=== PATIENT | male | born 1950 | race Caucasian/White ===

== ENCOUNTER 2018-05-09 02:24 | Observation (INO) | payer MEDICARE, OTHER ==
[2018-05-09] MEDS ORDERED: Sodium Chloride 0.9% 2.5 ML Syringe FLUSH PRN (02:46)
[2018-05-09] MEDS ORDERED: Sodium Chloride 0.9% 10 ML Syringe FLUSH PRN (02:46)
[2018-05-09 03:38] LABS: CHLORIDE,CL 99 mmol/L (98-107); SODIUM,NA 136 mmol/L (136-148)
--- NOTE | 2018-05-09 06:17 | EDM.PDOC ---
ED HPI GENERAL MEDICAL PROBLEM - General Chief Complaint: Lower Extremity Injury/Pain Stated Complaint: TO BE SEEN PER DR. 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 Review of systems: As per history of present illness and below otherwise all systems reviewed and negative. Past medical history: As per history of present illness and as reviewed below otherwise noncontributory. Surgical history: As per history of present illness and as reviewed below otherwise noncontributory. Social history: No reported history of drug or alcohol abuse. Family history: As per history of present illness and as reviewed below otherwise noncontributory. Physical exam: HEENT: Atraumatic, normocephalic, pupils reactive, negative for conjunctival pallor or scleral icterus, mucous membranes moist, throat clear, neck supple, nontender, trachea midline. Lungs: Clear to auscultation, breath sounds equal bilaterally, chest nontender. Heart: S1S2, regular, negative for clicks, rubs, or JVD. Abdomen: Soft, nondistended, nontender. Negative for masses or hepatosplenomegaly. Negative for costovertebral tenderness. Pelvis: Stable nontender. Genitourinary: Deferred. Rectal: Deferred. Extremities: patient has a plantar ulcer approximately 3 cm in diameter to his right foot. Neurovascular exam is unremarkable Neuro: Awake, alert, oriented. Cranial nerves II through XII unremarkable. Cerebellum unremarkable. Motor and sensory unremarkable throughout. Exam nonfocal. Diagnostics: CBC CMP blood culture 2 x-ray right foot PT/INR Therapeutics: Vancomycin 1 g IV Impression: #1 diabetic foot #2 rule out osteomyelitis Definitive disposition and diagnosis as appropriate pending reevaluation and review of above. denies pain Pain Score (Numeric/FACES): 0 - Related Data Allergies Allergy/AdvReac Type Severity Reaction Status Date / Time No Known Allergies Allergy Verified 05/09/18 02:39 Home Meds: Home Meds Allopurinol [Zyloprim] 300 mg PO DAILY 11/28/15 [History] Aspirin [Adult Low Dose Aspirin EC] 81 mg PO DAILY 11/28/15 [History] Fish Oil/[place]-3 Fatty Acids [Fish Oil 1,000 MG] 1 gm PO DAILY 11/28/15 [History ] Levothyroxine Sodium 88 mcg PO DAILY 11/28/15 [History] Liraglutide [Victoza] 1.8 mg SQ DAILY 11/28/15 [History] Ubidecarenone [Co Q-10] 100 mg PO DAILY 11/28/15 [History] glipiZIDE [Glipizide ER] 10 mg PO WITHBREAKFAST 11/28/15 [History] metFORMIN HCl [Metformin HCl] 1,000 mg PO BID 11/28/15 [History] Losartan/Hydrochlorothiazide [Losartan-HCTZ 100-12.5 MG] 1 each PO DAILY [History] Past Medical History HEENT History: Reports: Impaired Vision Cardiovascular History: Reports: High Cholesterol, Hypertension Respiratory History: Reports: Sleep Apnea Other Respiratory History: CPAP to sleep Gastrointestinal History: Reports: None Genitourinary History: Reports: None Musculoskeletal History: Reports: Arthritis, Fracture, Gout Neurological History: Reports: Neuropathy, Diabetic Psychiatric History: Reports: None Endocrine/Metabolic History: Reports: Diabetes, Type II, Hypothyroidism Hematologic History: Reports: None Immunologic History: Reports: None Oncologic (Cancer) History: Reports: None Dermatologic History: Reports: None - Infectious Disease History Infectious Disease History: Reports: None - Past Surgical History GI Surgical History: Reports: Hernia Repair/Other Musculoskeletal Surgical History: Reports: Amputation Social & Family History - Family History Family Medical History: Noncontributory HEENT: Reports: Cataract, Impaired Vision Cardiac: Reports: High Cholesterol Musculoskeletal: Reports: Gout Neurological: Reports: TIA Endocrine/Metabolic: Reports: Diabetes, type II - Tobacco Use Smoking Status *Q: Never Smoker - Caffeine Use Caffeine Use: Reports: Coffee - Recreational Drug Use Recreational Drug Use: No - Living Situation & Occupation Occupation: Employed Review of Systems - Review of Systems Review Of Systems: ROS reveals no pertinent complaints other than HPI. ED EXAM, GENERAL - Physical Exam Exam: See Below (See dictation) Course - Vital Signs Last Recorded V/S: Last Vital Signs Temp 36.3 C 05/09/18 02:39 Pulse 92 05/09/18 02:39 Resp 18 05/09/18 02:39 BP 113/67 05/09/18 02:39 Pulse Ox 98 05/09/18 02:39 - Orders/Labs/Meds Orders: Active Orders 24 hr Category Date Time Status EKG Documentation Completion [RC] STAT Care 05/09/18 02:46 Active Foot Comp Min 3V Rt [CR] Stat Exams 05/09/18 02:46 Taken CULTURE BLOOD [BC] Stat Lab 05/09/18 03:00 Received CULTURE BLOOD [BC] Stat Lab 05/09/18 03:10 Received Sodium Chloride 0.9% [Saline Flush] Med 05/09/18 02:46 Active 10 ml FLUSH ASDIRECTED PRN Sodium Chloride 0.9% [Saline Flush] Med 05/09/18 02:46 Active 2.5 ml FLUSH ASDIRECTED PRN Blood Culture x2 Reflex Set [OM.PC] Stat Oth 05/09/18 02:46 Ordered Peripheral IV Insertion Adult [OM.PC] Stat Oth 05/09/18 02:46 Ordered Medication Orders Sodium Chloride (Saline Flush) 10 ml FLUSH ASDIRECTED PRN PRN Reason: Keep Vein Open Sodium Chloride (Saline Flush) 2.5 ml FLUSH ASDIRECTED PRN PRN Reason: Keep Vein Open Labs: Laboratory Tests 05/09/18 05/09/18 Range/Units 03:00 03:00 WBC 10.66 (4.0-11.0) K/uL RBC 3.93 L (4.50-5.90) M/uL Hgb 11.4 L (13.0-17.0) g/dL Hct 34.2 L (38.0-50.0) % MCV 87.0 (80.0-98.0) fL MCH 29.0 (27.0-32.0) pg MCHC 33.3 (31.0-37.0) g/dL RDW Std Deviation 45.2 (28.0-62.0) fl RDW Coeff of Katelyn 14 (11.0-15.0) % Plt Count 278 (150-400) K/uL MPV 10.10 (7.40-12.00) fL Neut % (Auto) 74.5 (48.0-80.0) % Lymph % (Auto) 11.5 L (16.0-40.0) % [place] % (Auto) 11.0 (0.0-15.0) % Eos % (Auto) 2.9 (0.0-7.0) % Baso % (Auto) 0.1 (0.0-1.5) % Neut # (Auto) 7.9 H (1.4-5.7) K/uL Lymph # (Auto) 1.2 (0.6-2.4) K/uL [place] # (Auto) 1.2 H (0.0-0.8) K/uL Eos # (Auto) 0.3 (0.0-0.7) K/uL Baso # (Auto) 0.0 (0.0-0.1) K/uL Nucleated RBC % 0.0 /100WBC Nucleated RBCs # 0 K/uL Sodium 136 (136-148) mmol/L Potassium 3.4 L (3.5-5.1) mmol/L Chloride 99 (98-107) mmol/L Carbon Dioxide 24.4 (21.0-32.0) mmol/L BUN 19 H (7.0-18.0) mg/dL Creatinine 1.2 (0.8-1.3) mg/dL Est Cr Clr Drug Dosing 66.46 mL/min Estimated GFR (MDRD) > 60.0 ml/min Glucose 143 H (74-106) mg/dL Calcium 9.2 (8.5-10.1) mg/dL Total Bilirubin 0.7 (0.2-1.0) mg/dL AST 22 (15-37) IU/L ALT 15 (14-63) IU/L Alkaline Phosphatase 54 (46-116) U/L Total Protein 7.7 (6.4-8.2) g/dL Albumin 3.1 L (3.4-5.0) g/dL Globulin 4.6 H (2.0-3.5) g/dL Albumin/Globulin Ratio 0.7 L (1.3-2.8) Meds: Medications Generic Name Dose Route Start Last Admin Trade Name Freq PRN Reason Stop Dose Admin Sodium Chloride 10 ml 05/09/18 02:46 Saline Flush FLUSH ASDIRECTED PRN Keep Vein Open Sodium Chloride 2.5 ml 05/09/18 02:46 Saline Flush FLUSH ASDIRECTED PRN Keep Vein Open Departure - Departure Time of Disposition: 06:16 Disposition: Refer to Observation Condition: Good Clinical Impression: Diabetic foot - Discharge Information Referrals: PCP,None [Primary Care Provider] - - My Orders Last 24 Hours: My Active Orders 05/09/18 02:46 EKG Documentation Completion [RC] STAT Foot Comp Min 3V Rt [CR] Stat Sodium Chloride 0.9% [Saline Flush] 10 ml FLUSH ASDIRECTED PRN Sodium Chloride 0.9% [Saline Flush] 2.5 ml FLUSH ASDIRECTED PRN Blood Culture x2 Reflex Set [OM.PC] Stat Peripheral IV Insertion Adult [OM.PC] Stat 05/09/18 03:00 CULTURE BLOOD [BC] Stat 05/09/18 03:10 CULTURE BLOOD [BC] Stat - Assessment/Plan Last 24 Hours: My Active Orders 05/09/18 02:46 EKG Documentation Completion [RC] STAT Foot Comp Min 3V Rt [CR] Stat Sodium Chloride 0.9% [Saline Flush] 10 ml FLUSH ASDIRECTED PRN Sodium Chloride 0.9% [Saline Flush] 2.5 ml FLUSH ASDIRECTED PRN Blood Culture x2 Reflex Set [OM.PC] Stat Peripheral IV Insertion Adult [OM.PC] Stat 05/09/18 03:00 CULTURE BLOOD [BC] Stat 05/09/18 03:10 CULTURE BLOOD [BC] Stat
[2018-05-09] MEDS ORDERED: Sodium Chloride 0.9% 1,000 ML IV STA (06:22)
--- NOTE | 2018-05-09 10:24 | CR ---
EXAM DATE: 05/09/18 PATIENT'S AGE: 68 Patient: FILIBERTO BARR Facility: [place], [place] Site . Site : 1950 Study: XRay Extremity Right Foot [id number]/21/2018 3:29:23 AM Ordering Physician: Doctor Patterson Final Report: Indication: Foot ulcer three views right foot Technique: Comparison: None Findings: Surgical absence of the entire right toe. Oval lucency on the plantar aspect of the foot at the level of the distal metatarsals consistent with clinical history ulcer. There is increased sclerosis of the sesamoid bone of the 1st metatarsal. No definite bony erosion identified. No soft tissue gas. No fracture or subluxation. Impression: Plantar ulcer. Increased sclerosis of the sesamoid bone of the 1st metatarsal may reflect chronic change. MRI or nuclear medicine bone scan would be useful for further evaluation if there is high clinical suspicion for osteomyelitis. Dictated by Lidia Pantoja MD @ May 09 2018 4:02AM (Electronic Signature) Report Signed by Proxy. MERLE
[2018-05-09] MEDS ORDERED: Acetaminophen/HYDROcodone 325-5 MG Tab PO PRN (11:54)
[2018-05-09] MEDS ORDERED: Triamcinolone Acetonide 0.1% Crm 15 GM Tube TOP PRN (11:57)
[2018-05-09] MEDS: Piperacillin/Tazobactam 4.5 GM in Sodium Chloride 0.9% 100 ML IV SCH ×2 (13:05→20:44)
[2018-05-09] MEDS ORDERED: Vancomycin 2 GM in Sodium Chloride 0.9% 500 ML IV SCH (17:00)
[2018-05-09] MEDS: Insulin Aspart 100 Units/ML 3 ML Pen SUBCUT SCH ×2 (18:08→21:16)
--- NOTE | 2018-05-09 23:21 | PCM.CONS ---
H&P History of Present Illness - General Date of Service: 05/09/18 Admit Problem/Dx: Admission Diagnosis/Problem Admission Diagnosis/Problem Diabetic foot Diabetic ulcer right foot Source of Information: Patient History Limitations: Reports: No Limitations - History of Present Illness Onset of Symptoms: Reports: Gradual, Unknown/Unsure Location: Reports: Lower Extremity, Right Quality: Reports: Other (patient has severe peripheral neuropathy and does not feel pain from ulcer.) Associated Symptoms: Reports: No Other Symptoms denies pain Pain Score (Numeric/FACES): 0 (no pain due to peripheral neuropathy) - Related Data Allergies/Adverse Reactions: Allergies Allergy/AdvReac Type Severity Reaction Status Date / Time No Known Allergies Allergy Verified 05/09/18 02:39 Home Medications: Home Meds RX: Allopurinol [Zyloprim] 300 mg PO DAILY 11/28/15 [History] RX: Aspirin [Adult Low Dose Aspirin EC] 81 mg PO DAILY 11/28/15 [History] RX: Fish Oil/[place]-3 Fatty Acids [Fish Oil 1,000 MG] 1 gm PO DAILY 11/28/15 [ History] RX: Levothyroxine Sodium 88 mcg PO DAILY 11/28/15 [History] RX: Liraglutide [Victoza] 1.8 mg SQ DAILY 11/28/15 [History] RX: Ubidecarenone [Co Q-10] 100 mg PO DAILY 11/28/15 [History] RX: glipiZIDE [Glipizide ER] 10 mg PO WITHBREAKFAST 11/28/15 [History] RX: metFORMIN HCl [Metformin HCl] 1,000 mg PO BID 11/28/15 [History] Losartan/Hydrochlorothiazide [Losartan-HCTZ 100-12.5 MG] 1 each PO DAILY [History] Sulfamethoxazole/Trimethoprim [Sulfamethoxazole-Tmp Ds Tablet] 1 each PO DAILY 05/09/18 [History] Triamcinolone Acetonide [Triamcinolone Acetonide 0.1% Crm] 1 applic TOP ASDIRECTED PRN 05/09/18 [History] Past Medical History HEENT History: Reports: Impaired Vision Cardiovascular History: Reports: High Cholesterol, Hypertension Respiratory History: Reports: Sleep Apnea Other Respiratory History: CPAP to sleep Gastrointestinal History: Reports: None Genitourinary History: Reports: None Musculoskeletal History: Reports: Arthritis, Fracture, Gout Neurological History: Reports: Neuropathy, Diabetic Psychiatric History: Reports: None Endocrine/Metabolic History: Reports: Diabetes, Type II, Hypothyroidism Hematologic History: Reports: None Immunologic History: Reports: None Oncologic (Cancer) History: Reports: None Dermatologic History: Reports: None - Infectious Disease History Infectious Disease History: Reports: Chicken Pox, Measles - Past Surgical History GI Surgical History: Reports: Hernia Repair/Other Musculoskeletal Surgical History: Reports: Amputation Social & Family History - Family History Family Medical History: Noncontributory HEENT: Reports: Cataract, Impaired Vision Cardiac: Reports: High Cholesterol Musculoskeletal: Reports: Gout Neurological: Reports: TIA Endocrine/Metabolic: Reports: Diabetes, type II - Tobacco Use Smoking Status *Q: Never Smoker - Caffeine Use Caffeine Use: Reports: None - Recreational Drug Use Recreational Drug Use: No - Living Situation & Occupation Occupation: Employed H&P Review of Systems - Review of Systems: Review Of Systems: See Below General: Reports: No Symptoms HEENT: Reports: No Symptoms Pulmonary: Reports: No Symptoms Cardiovascular: Reports: No Symptoms Gastrointestinal: Reports: No Symptoms Genitourinary: Reports: No Symptoms Musculoskeletal: Reports: No Symptoms Neurological: Reports: No Symptoms Hematologic/Lymphatic: Reports: No Symptoms Immunologic: Reports: No Symptoms Exam - Exam Exam: See Below - Vital Signs Vital Signs: Last Vital Signs Temp 36.5 C 05/09/18 19:00 Pulse 60 05/09/18 19:00 Resp 18 05/09/18 19:00 BP 120/70 05/09/18 19:00 Pulse Ox 96 05/09/18 19:00 Weight: 129.047 kg - Exam Extremities: Other (1.4 cm plantar diabetic ulcer on right foot that probes to deep tissue and bone in at least one location) Peripheral Pulses: 2+: Posterior Tibial (L), Posterior Tibial (R), Dorsalis Pedis (L), Dorsalis Pedis (R) Skin: Warm Skin Alteration Location (Drawings Not To Scale): 1 - 1.4 cm ulcer to deep tissue and bone in at least one location Physical Exam Comments:: Diabetic ulcer, 1.4 cm diameter on plantar distal right foot just proximal to area of previous amputation. Small amount of purulent drainage when pressure is applied - reduced from yesterday prior to patient coming to hospital and starting IV antibiotics. No malodor today but yesterday malodor was signficant. Necrotic tissue is present in ulcerated area. - Patient Data Lab Results Last 24 hrs: Laboratory Results - last 24 hr 05/09/18 05/09/18 05/09/18 Range/Units 03:00 03:00 03:00 WBC 10.66 (4.0-11.0) K/uL RBC 3.93 L (4.50-5.90) M/uL Hgb 11.4 L (13.0-17.0) g/dL Hct 34.2 L (38.0-50.0) % MCV 87.0 (80.0-98.0) fL MCH 29.0 (27.0-32.0) pg MCHC 33.3 (31.0-37.0) g/dL RDW Std Deviation 45.2 (28.0-62.0) fl RDW Coeff of Katelyn 14 (11.0-15.0) % Plt Count 278 (150-400) K/uL MPV 10.10 (7.40-12.00) fL Neut % (Auto) 74.5 (48.0-80.0) % Lymph % (Auto) 11.5 L (16.0-40.0) % [place] % (Auto) 11.0 (0.0-15.0) % Eos % (Auto) 2.9 (0.0-7.0) % Baso % (Auto) 0.1 (0.0-1.5) % Neut # (Auto) 7.9 H (1.4-5.7) K/uL Lymph # (Auto) 1.2 (0.6-2.4) K/uL [place] # (Auto) 1.2 H (0.0-0.8) K/uL Eos # (Auto) 0.3 (0.0-0.7) K/uL Baso # (Auto) 0.0 (0.0-0.1) K/uL Nucleated RBC % 0.0 /100WBC Nucleated RBCs # 0 K/uL ESR (0-19) mm/hr INR 0.94 Sodium 136 (136-148) mmol/L Potassium 3.4 L (3.5-5.1) mmol/L Chloride 99 (98-107) mmol/L Carbon Dioxide 24.4 (21.0-32.0) mmol/L BUN 19 H (7.0-18.0) mg/dL Creatinine 1.2 (0.8-1.3) mg/dL Est Cr Clr Drug Dosing 66.46 mL/min Estimated GFR (MDRD) > 60.0 ml/min Glucose 143 H (74-106) mg/dL POC Glucose (60-110) mg/dL Calcium 9.2 (8.5-10.1) mg/dL Total Bilirubin 0.7 (0.2-1.0) mg/dL AST 22 (15-37) IU/L ALT 15 (14-63) IU/L Alkaline Phosphatase 54 (46-116) U/L C-Reactive Protein (0.00-0.90) mg/dL Total Protein 7.7 (6.4-8.2) g/dL Albumin 3.1 L (3.4-5.0) g/dL Globulin 4.6 H (2.0-3.5) g/dL Albumin/Globulin Ratio 0.7 L (1.3-2.8) 05/09/18 05/09/18 05/09/18 Range/Units 03:00 03:00 16:30 WBC (4.0-11.0) K/uL RBC (4.50-5.90) M/uL Hgb (13.0-17.0) g/dL Hct (38.0-50.0) % MCV (80.0-98.0) fL MCH (27.0-32.0) pg MCHC (31.0-37.0) g/dL RDW Std Deviation (28.0-62.0) fl RDW Coeff of Katelyn (11.0-15.0) % Plt Count (150-400) K/uL MPV (7.40-12.00) fL Neut % (Auto) (48.0-80.0) % Lymph % (Auto) (16.0-40.0) % [place] % (Auto) (0.0-15.0) % Eos % (Auto) (0.0-7.0) % Baso % (Auto) (0.0-1.5) % Neut # (Auto) (1.4-5.7) K/uL Lymph # (Auto) (0.6-2.4) K/uL [place] # (Auto) (0.0-0.8) K/uL Eos # (Auto) (0.0-0.7) K/uL Baso # (Auto) (0.0-0.1) K/uL Nucleated RBC % /100WBC Nucleated RBCs # K/uL ESR 74 H (0-19) mm/hr INR Sodium (136-148) mmol/L Potassium (3.5-5.1) mmol/L Chloride (98-107) mmol/L Carbon Dioxide (21.0-32.0) mmol/L BUN (7.0-18.0) mg/dL Creatinine (0.8-1.3) mg/dL Est Cr Clr Drug Dosing mL/min Estimated GFR (MDRD) ml/min Glucose (74-106) mg/dL POC Glucose 108 (60-110) mg/dL Calcium (8.5-10.1) mg/dL Total Bilirubin (0.2-1.0) mg/dL AST (15-37) IU/L ALT (14-63) IU/L Alkaline Phosphatase (46-116) U/L C-Reactive Protein 13.90 H (0.00-0.90) mg/dL Total Protein (6.4-8.2) g/dL Albumin (3.4-5.0) g/dL Globulin (2.0-3.5) g/dL Albumin/Globulin Ratio (1.3-2.8) 05/09/18 Range/Units 21:03 WBC (4.0-11.0) K/uL RBC (4.50-5.90) M/uL Hgb (13.0-17.0) g/dL Hct (38.0-50.0) % MCV (80.0-98.0) fL MCH (27.0-32.0) pg MCHC (31.0-37.0) g/dL RDW Std Deviation (28.0-62.0) fl RDW Coeff of Katelyn (11.0-15.0) % Plt Count (150-400) K/uL MPV (7.40-12.00) fL Neut % (Auto) (48.0-80.0) % Lymph % (Auto) (16.0-40.0) % [place] % (Auto) (0.0-15.0) % Eos % (Auto) (0.0-7.0) % Baso % (Auto) (0.0-1.5) % Neut # (Auto) (1.4-5.7) K/uL Lymph # (Auto) (0.6-2.4) K/uL [place] # (Auto) (0.0-0.8) K/uL Eos # (Auto) (0.0-0.7) K/uL Baso # (Auto) (0.0-0.1) K/uL Nucleated RBC % /100WBC Nucleated RBCs # K/uL ESR (0-19) mm/hr INR Sodium (136-148) mmol/L Potassium (3.5-5.1) mmol/L Chloride (98-107) mmol/L Carbon Dioxide (21.0-32.0) mmol/L BUN (7.0-18.0) mg/dL Creatinine (0.8-1.3) mg/dL Est Cr Clr Drug Dosing mL/min Estimated GFR (MDRD) ml/min Glucose (74-106) mg/dL POC Glucose 127 H (60-110) mg/dL Calcium (8.5-10.1) mg/dL Total Bilirubin (0.2-1.0) mg/dL AST (15-37) IU/L ALT (14-63) IU/L Alkaline Phosphatase (46-116) U/L C-Reactive Protein (0.00-0.90) mg/dL Total Protein (6.4-8.2) g/dL Albumin (3.4-5.0) g/dL Globulin (2.0-3.5) g/dL Albumin/Globulin Ratio (1.3-2.8) Result Diagrams: 05/09/18 03:00 05/09/18 03:00 Consult PN Assessment/Plan Procedures: Procedures ASSAY OF BLOOD/URIC ACID (11/27/15) BLOOD CULTURE FOR BACTERIA (12/15/15) BONE IMAGING 3 PHASE (01/02/16) C-REACTIVE PROTEIN (12/15/15) CHEST X-RAY 2VW FRONTAL&LATL (12/15/15) COMPLETE CBC W/AUTO DIFF WBC (12/15/15) COMPREHEN METABOLIC PANEL (12/15/15) EMERGENCY DEPT VISIT (12/15/15) EVALUATE PT USE OF INHALER (12/15/15) GLYCOSYLATED HEMOGLOBIN TEST (11/27/15) HYDRATE IV INFUSION ADD-ON (12/15/15) HYDRATION IV INFUSION INIT (12/15/15) INFLUENZA ASSAY W/OPTIC (12/15/15) IRRIG DRUG DELIVERY DEVICE (01/25/16) NEG PRESS WOUND TX </=50 CM (02/06/16) PT EVALUATION (12/15/15) RBC SED RATE AUTOMATED (11/27/15) ROUTINE VENIPUNCTURE (12/15/15) THER/PROPH/DIAG INJ IV PUSH (01/25/16) URINALYSIS AUTO W/SCOPE (12/15/15) URINE CULTURE/COLONY COUNT (12/15/15) (1) Diabetic foot ulcer associated with type 2 diabetes mellitus SNOMED Code(s): 209352334 Code(s): E11.621 - TYPE 2 DIABETES MELLITUS WITH FOOT ULCER; L97.509 - NON- PRESSURE CHRONIC ULCER OTH PRT UNSP FOOT W UNSP SEVERITY Current Visit: No Qualifiers: Laterality: right Qualified Code(s): E11.621 - Type 2 diabetes mellitus with foot ulcer Assessment:: Ulcer probes as deep as bone. Problem List Initiated/Reviewed/Updated: Yes My Orders Last 24 Hours: My Active Orders 05/09/18 20:22 CULTURE ANAEROBIC [RM] Routine CULTURE WOUND [RM] Routine Plan: 1. Patient examined at bedside. 2. I determined that bedside incision and drainage was possible and possibly sufficient given the improvement of the ulcerated area since admission and starting IV Zosyn and Vancomycin. 3. Discussion held with patient. Patient gives written consent for Incision and Drainage Right Foot. 4. Incision and drainge performed on right foot diabetic ulcer. Necrotic tissue removed. Ulcer flushed with copious amounts of normal sterile saline with betadine, dried and swab cultures taken. Ulcer then packed with iodoform packing, covered with betadine soaked xeroform gauze, fluff gauze, kerlix roll and secured with tanisha dressing. 5. Patient is OK to discharge on Tuesday from Podiatry standpoint. Arrangements are being made for patient to be cared for by his daughter who is a nurse and will manage his wound vac which I will order to be sent directly to his home. Dressing change should be performed prior to discharge, consisting of flushing with copious amounts of normal sterile saline with betadine, dried and pack with iodoform packing, cover with betadine soaked xeroform gauze, fluff gauze, kerlix roll and secured with tanisha dressing.
[2018-05-10] MEDS: Piperacillin/Tazobactam 4.5 GM in Sodium Chloride 0.9% 100 ML IV SCH ×3 (00:40→11:29)
--- NOTE | 2018-05-10 01:41 | OR ---
SURGEON: Derrick Smith DPM DATE OF PROCEDURE: 05/09/2018 ANESTHESIA: None. PATHOLOGY: None. HEMOSTASIS: None. DIAGNOSIS: Diabetic ulcer, right foot. OPERATIVE PROCEDURE: Incision and drainage of diabetic ulcer, right foot. JUSTIFICATION FOR THE PROCEDURE: The patient is well known to me, having had a major infection of the right foot two years ago that resulted in partial loss of his 2nd ray including the 2nd toe on the right foot. The patient presented last evening in my office with a very foul smelling diabetic ulcer, I took a swab culture in the office and the swab went approximately 3 cm deep straight into his foot from plantar to dorsal. The patient clearly has necrotic tissue and also exhibited purulence that requires incision and drainage. Due to the factors including the fact that I will not be able to follow this patient over the next several days and improvement of the patient's right foot in the last 24 hours or so due to being nonweightbearing and receiving continuous IV antibiotic therapy, the level of improvement is sufficient that a bedside incision and drainage is possible. Additionally, the patient has severe peripheral neuropathy, which further enables to proceed without concern for causing pain to the patient. In fact, not even local anesthesia is necessary due to the severity of this patient's peripheral neuropathy on his feet. PROCEDURE IN DETAIL: The area was prepped in the usual aseptic manner with a chlorhexidine prep and incision was made with a #15 blade, incising necrotic tissue in the ulcer to visualize deeper into the ulcer and remove what was a reduced amount of purulent drainage compared with his presentation yesterday. Curved hemostat was utilized to probe. There was tunneling in multiple directions, approximately 3 to 4 cm of tunneling noted. Additional small amount of purulence was drained after exploring with the curved hemostat. After exsanguination and easily removed purulence and necrotic tissue with a pickup and blade, the area was flushed with approximately 500 mL of normal sterile saline that was mixed with Betadine to provide a diluted tea-colored mixture of saline with Betadine. This was infused with a large syringe repeatedly until all of the saline had been utilized. Area was dabbed dry with gauze, and to determine what may be left as far as any infection, swab cultures were taken. The area was then packed with iodoform gauze, half-inch, followed by overlying around the ulcer a Betadine-soaked Xeroform gauze, followed by fluff gauze, Kerlix roll, and the right foot dressing secured with an Ga bandage. The patient tolerated the procedure well. Confirmed that he had no pain at any point during the procedure. He will continue to receive IV antibiotics until his likely discharge tomorrow. While performing the procedure, I also discussed on speaker phone with his daughter who is a nurse, that if she is able to handle the duties of maintaining a wound VAC, which she is extremely familiar with due to her job, which entails placing wound VACs very often, that the patient could be managed by her with a VAC, which I will request from [facility] wound VAC. The wound VAC and materials will be shipped directly to the patient's stated address in [place], [place]. NAEEM GARZA /[id number]
[2018-05-10] MEDS: Insulin Aspart 100 Units/ML 3 ML Pen SUBCUT SCH ×2 (06:32→11:29)
[2018-05-10] MEDS ORDERED: Levothyroxine 88 MCG Tab PO SCH (07:30)
[2018-05-10 07:35] LABS: CHLORIDE,CL 106 mmol/L (98-107); SODIUM,NA 140 mmol/L (136-148)
[2018-05-10] MEDS ORDERED: Losartan 50 MG Tab PO SCH (09:00)
[2018-05-10] MEDS ORDERED: Fish Oil/Omega-3 Fatty Acids 1 Gm Cap PO SCH (09:00)
[2018-05-10] MEDS ORDERED: Non-Formulary Medication 1 Each (Ubidecarenone 100 MG) PO SCH (09:00)
[2018-05-10] MEDS ORDERED: Allopurinol 300 MG Tab PO SCH (09:00)
[2018-05-10] MEDS ORDERED: Aspirin 81 MG Tab.EC PO SCH (09:00)
--- NOTE | 2018-05-10 11:01 | MR ---
EXAM DATE: 05/09/18 PATIENT'S AGE: 68 Patient: FILIBERTO BARR Facility: [place], [place] Site . Site : 1950 Study: MRI Extremity Right [id number]/[id number] 4:05:15 PM Ordering Physician: Alexus Farias Final Report: HISTORY: Diabetic foot ulcer. TECHNIQUE: Axial, sagittal and coronal T1, proton density, proton density fat-sat and STIR images were obtained of the right foot without contrast administration. COMPARISON: Radiographs 05/09/2018. 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 There is a soft tissue ulcer along the plantar aspect of the forefoot underlying the residual distal 2nd metatarsal bone and resection margin. Though assessment for fluid collections is limited by the lack of postcontrast imaging , there is likely some fluid within the soft tissues just deep to the ulcer on the coronal PD fat-sat image #21 and with the small fluid pocket likely measuring on the order of 1.2 cm long dimension. No definite osteomyelitis of the residual 2nd metatarsal bone. - Fairly extensive soft tissue edema involving the foot. Atrophy of foot musculature compatible with chronic denervation changes. 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 There is no acute fracture. Chronic deformity of the anterior process of the calcaneus could reflect sequelae of remote trauma. There are degenerative changes within the midfoot. IMPRESSION: 1. 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 No osteomyelitis of the residual 2nd metatarsal bone. 2. Plantar foot ulcer underlying the 2nd metatarsal head and resection margin region. There is likely a small amount of fluid/fluid collection within the soft tissues deep to the ulcer. 3. Soft tissue edema involving the foot. 4. Chronic denervation changes involving foot musculature. Dictated by Florencio Bowers MD @ 05/09/2018 4:39:22 PM Dictated by: Florencio Bowers MD @ 05/09/2018 16:39:29 (Electronic Signature) Report Signed by Proxy. [facility] SYSTEMJacques
[2018-05-10 12:30] VITALS: BP 122/66
--- NOTE | 2018-05-10 14:02 | PCM.DCSUM1 ---
Discharge Summary - Hospital Course Diagnosis: Stroke: No - Discharge Data Discharge Disposition: Home, Self-Care 01 Condition: Fair - Discharge Diagnosis/Problem(s) (1) Diabetic foot ulcer associated with type 2 diabetes mellitus SNOMED Code(s): 830715337 ICD Code: E11.621 - TYPE 2 DIABETES MELLITUS WITH FOOT ULCER; L97.509 - NON- PRESSURE CHRONIC ULCER OTH PRT UNSP FOOT W UNSP SEVERITY Status: Acute Current Visit: No Qualifiers: Laterality: right Qualified Code(s): E11.621 - Type 2 diabetes mellitus with foot ulcer - Patient Summary/Data Consults: Consultations 05/09/18 12:00 Wound Spinner Continuous Consult [Consult to Wound Care Services] [CONS] Routine 05/09/18 12:05 Consult to Physician [CONS] Urgent - Patient Instructions Diet: Usual Diet as Tolerated Activity: As Tolerated Driving: May Drive Today Showering/Bathing: May Shower - Discharge Plan Prescriptions/Med Rec: Amoxicillin/Clavulanate K [Augmentin 875-125 MG] 1 tab PO BID 10 Days #20 tablet Home Medications: Home Meds Allopurinol [Zyloprim] 300 mg PO DAILY 11/28/15 [History] Aspirin [Adult Low Dose Aspirin EC] 81 mg PO DAILY 11/28/15 [History] Fish Oil/[place]-3 Fatty Acids [Fish Oil 1,000 MG] 1 gm PO DAILY 11/28/15 [History ] Levothyroxine Sodium 88 mcg PO DAILY 11/28/15 [History] Liraglutide [Victoza] 1.8 mg SQ DAILY 11/28/15 [History] Ubidecarenone [Co Q-10] 100 mg PO DAILY 11/28/15 [History] glipiZIDE [Glipizide ER] 10 mg PO WITHBREAKFAST 11/28/15 [History] metFORMIN HCl [Metformin HCl] 1,000 mg PO BID 11/28/15 [History] Losartan/Hydrochlorothiazide [Losartan-HCTZ 100-12.5 MG] 1 each PO DAILY [History] Triamcinolone Acetonide [Triamcinolone Acetonide 0.1% Crm] 1 applic TOP ASDIRECTED PRN 05/09/18 [History] Amoxicillin/Clavulanate K [Augmentin 875-125 MG] 1 tab PO BID 10 Days #20 tablet 05/10/18 [Rx] Patient Handouts: Diabetes Mellitus and Foot Care, Amoxicillin capsules or tablets, Incision Care, Adult, [id number] - Patient Data Vitals - Most Recent: Last Vital Signs Temp 97.0 F 05/10/18 12:29 Pulse 66 05/10/18 12:29 Resp 18 05/10/18 12:29 BP 122/66 05/10/18 12:29 Pulse Ox 92 L 05/10/18 12:29 Weight - Most Recent: 284 lb 8 oz I&O - Last 24 hours: Intake & Output 05/09/18 05/10/18 05/10/18 22:59 06:59 14:59 Intake Total 1200 350 Output Total 3100 300 Balance -1900 50 Lab Results - Last 24 hrs: Laboratory Results - last 24 hr 05/09/18 05/09/18 05/09/18 Range/Units 03:00 03:00 16:30 WBC (4.0-11.0) K/uL RBC (4.50-5.90) M/uL Hgb (13.0-17.0) g/dL Hct (38.0-50.0) % MCV (80.0-98.0) fL MCH (27.0-32.0) pg MCHC (31.0-37.0) g/dL RDW Std Deviation (28.0-62.0) fl RDW Coeff of Katelyn (11.0-15.0) % Plt Count (150-400) K/uL MPV (7.40-12.00) fL Nucleated RBC % /100WBC Nucleated RBCs # K/uL ESR 74 H (0-19) mm/hr Sodium (136-148) mmol/L Potassium (3.5-5.1) mmol/L Chloride (98-107) mmol/L Carbon Dioxide (21.0-32.0) mmol/L BUN (7.0-18.0) mg/dL Creatinine (0.8-1.3) mg/dL Est Cr Clr Drug Dosing mL/min Estimated GFR (MDRD) ml/min Glucose (74-106) mg/dL POC Glucose 108 (60-110) mg/dL Calcium (8.5-10.1) mg/dL Total Bilirubin (0.2-1.0) mg/dL AST (15-37) IU/L ALT (14-63) IU/L Alkaline Phosphatase (46-116) U/L C-Reactive Protein 13.90 H (0.00-0.90) mg/dL Total Protein (6.4-8.2) g/dL Albumin (3.4-5.0) g/dL Globulin (2.0-3.5) g/dL Albumin/Globulin Ratio (1.3-2.8) 05/09/18 05/10/18 05/10/18 Range/Units 21:03 05:05 05:05 WBC 6.26 (4.0-11.0) K/uL RBC 3.71 L (4.50-5.90) M/uL Hgb 10.7 L (13.0-17.0) g/dL Hct 32.8 L (38.0-50.0) % MCV 88.4 (80.0-98.0) fL MCH 28.8 (27.0-32.0) pg MCHC 32.6 (31.0-37.0) g/dL RDW Std Deviation 46.0 (28.0-62.0) fl RDW Coeff of Katelyn 14 (11.0-15.0) % Plt Count 261 (150-400) K/uL MPV 9.70 (7.40-12.00) fL Nucleated RBC % 0.0 /100WBC Nucleated RBCs # 0 K/uL ESR (0-19) mm/hr Sodium 140 (136-148) mmol/L Potassium 4.0 (3.5-5.1) mmol/L Chloride 106 (98-107) mmol/L Carbon Dioxide 26.5 (21.0-32.0) mmol/L BUN 18 (7.0-18.0) mg/dL Creatinine 1.2 (0.8-1.3) mg/dL Est Cr Clr Drug Dosing 66.46 mL/min Estimated GFR (MDRD) > 60.0 ml/min Glucose 98 (74-106) mg/dL POC Glucose 127 H (60-110) mg/dL Calcium 9.3 (8.5-10.1) mg/dL Total Bilirubin 0.3 (0.2-1.0) mg/dL AST 20 (15-37) IU/L ALT 16 (14-63) IU/L Alkaline Phosphatase 44 L (46-116) U/L C-Reactive Protein (0.00-0.90) mg/dL Total Protein 7.0 (6.4-8.2) g/dL Albumin 2.8 L (3.4-5.0) g/dL Globulin 4.2 H (2.0-3.5) g/dL Albumin/Globulin Ratio 0.7 L (1.3-2.8) 05/10/18 Range/Units 05:56 WBC (4.0-11.0) K/uL RBC (4.50-5.90) M/uL Hgb (13.0-17.0) g/dL Hct (38.0-50.0) % MCV (80.0-98.0) fL MCH (27.0-32.0) pg MCHC (31.0-37.0) g/dL RDW Std Deviation (28.0-62.0) fl RDW Coeff of Katelyn (11.0-15.0) % Plt Count (150-400) K/uL MPV (7.40-12.00) fL Nucleated RBC % /100WBC Nucleated RBCs # K/uL ESR (0-19) mm/hr Sodium (136-148) mmol/L Potassium (3.5-5.1) mmol/L Chloride (98-107) mmol/L Carbon Dioxide (21.0-32.0) mmol/L BUN (7.0-18.0) mg/dL Creatinine (0.8-1.3) mg/dL Est Cr Clr Drug Dosing mL/min Estimated GFR (MDRD) ml/min Glucose (74-106) mg/dL POC Glucose 81 (60-110) mg/dL Calcium (8.5-10.1) mg/dL Total Bilirubin (0.2-1.0) mg/dL AST (15-37) IU/L ALT (14-63) IU/L Alkaline Phosphatase (46-116) U/L C-Reactive Protein (0.00-0.90) mg/dL Total Protein (6.4-8.2) g/dL Albumin (3.4-5.0) g/dL Globulin (2.0-3.5) g/dL Albumin/Globulin Ratio (1.3-2.8) STU Results - Last 24 hrs: Microbiology 05/09/18 03:10 Aerobic Blood Culture - Preliminary Blood - Venous - Lab Draw NO GROWTH AFTER 1 DAY Anaerobic Blood Culture - Preliminary NO GROWTH AFTER 1 DAY 05/09/18 03:00 Aerobic Blood Culture - Preliminary Blood - Venous NO GROWTH AFTER 1 DAY Anaerobic Blood Culture - Preliminary NO GROWTH AFTER 1 DAY 05/09/18 20:22 Gram Stain - Preliminary Foot, Right Med Orders - Current: Current Medications Hydrocodone Bitart/Acetaminophen ([place] 325-5 Mg) 1 tab PO Q4H PRN PRN Reason: Pain (moderate 4-6) Allopurinol (Zyloprim) 300 mg PO DAILY [facility] Last Admin: 05/10/18 08:48 Dose: 300 mg Aspirin (Halfprin) 81 mg PO DAILY [facility] Last Admin: 05/10/18 08:47 Dose: 81 mg Fish Oil (Fish Oil) 1 gm PO DAILY [facility] Last Admin: 05/10/18 08:48 Dose: Not Given Piperacillin Sod/Tazobactam (Sod 4.5 gm/ Sodium Chloride) 100 mls @ 100 mls/hr IV Q6H [facility] Last Admin: 05/10/18 11:29 Dose: 100 mls/hr Vancomycin HCl 2 gm/ Sodium (Chloride) 500 mls @ 250 mls/hr IV Q24H [facility] Last Admin: 05/09/18 18:09 Dose: 250 mls/hr Insulin Aspart (Novolog) 0 unit SUBCUT ACBED [facility]; Protocol Last Admin: 05/10/18 11:29 Dose: Not Given Levothyroxine Sodium (Synthroid) 88 mcg PO ACBREAKFAST [facility] Last Admin: 05/10/18 06:50 Dose: 88 mcg Losartan Potassium (Cozaar) 100 mg PO DAILY [facility] Last Admin: 05/10/18 08:51 Dose: 100 mg Sodium Chloride (Saline Flush) 10 ml FLUSH ASDIRECTED PRN PRN Reason: Keep Vein Open Last Admin: 05/09/18 06:23 Dose: 10 ml Sodium Chloride (Saline Flush) 2.5 ml FLUSH ASDIRECTED PRN PRN Reason: Keep Vein Open Last Admin: 05/09/18 06:23 Dose: 2.5 ml Triamcinolone Acetonide (Triamcinolone Acetonide 0.1% Crm) 1 gm TOP ASDIRECTED PRN PRN Reason: Rash Vancomycin HCl (Pharmacy To Dose - Vancomycin) 0 dose .XX ASDIRECTED DESEAN Discontinued Medications Vancomycin HCl 1 gm/ Sodium (Chloride) 250 mls @ 166 mls/hr IV ONETIME ONE Stop: 05/09/18 07:43 Last Admin: 05/09/18 06:23 Dose: 166 mls/hr Sodium Chloride (Normal Saline) 1,000 mls @ 125 mls/hr IV NOW STA Stop: 05/09/18 14:21 Last Admin: 05/09/18 06:23 Dose: 125 mls/hr
== END 2018-05-10 14:30 | disposition home or self-care (01) ==
LOC: MW.ED 02:24 → MW.MS 06:17
PROVIDERS: ADMIT Internal Medicine; ATTEND Internal Medicine
DX: E11.621 Type 2 diabetes mellitus with foot ulcer (principal); L97.514 Non-pressure chronic ulcer of other part of right foot with necrosis of bone; E11.42 Type 2 diabetes mellitus with diabetic polyneuropathy; I10 Essential (primary) hypertension; E78.00 Pure hypercholesterolemia, unspecified; G47.30 Sleep apnea, unspecified; E03.9 Hypothyroidism, unspecified; Z79.82 Long term (current) use of aspirin; Z79.4 Long term (current) use of insulin; Z79.899 Other long term (current) drug therapy
CPT/HCPCS: 11042; 36415; 73630; 73718; 80053; 82962; 85025; 85027; 85610; 85652; 86140; 87040; 87070; 87075; 87205; 93005; 96365; 96366; 96375; 96376; 99284; A9270; G0378; J2543; J3370; J7030; J7040; J7050